=== PATIENT | male | born 1940 | race Caucasian/White ===

== ENCOUNTER 2022-01-14 11:14 | Outpatient (CLI) | payer MEDICARE | END 2022-01-14 11:15 | disposition home or self-care (01) | LOC: CSHCT 11:14 | PROVIDERS: ATTEND Internal Medicine Cardiovascular Disease | DX: Z01.810 Encounter for preprocedural cardiovascular examination (principal); I48.0 Paroxysmal atrial fibrillation; Z98.890 Other specified postprocedural states; Z86.79 Personal history of other diseases of the circulatory system; I51.3 Intracardiac thrombosis, not elsewhere classified | CPT/HCPCS: 71275 ==